=== PATIENT | female | born 1990 | race Caucasian/White ===

== ENCOUNTER 2017-04-05 00:39 | Emergency (ER) | payer MEDICAID ==
[~2017-04-05] VITALS: Ht 160 cm; Wt 90.0 kg
[2017-04-05 00:41] VITALS: BP 113/77
== END 2017-04-05 03:39 | disposition home or self-care (01) ==
LOC: ED 03:16
DX: M79.662 Pain in left lower leg (principal); M79.661 Pain in right lower leg; F15.129 Other stimulant abuse with intoxication, unspecified
CPT/HCPCS: 93005; 99283

== ENCOUNTER 2017-08-22 11:32 | Emergency (ER) | payer MEDICAID ==
[~2017-08-22] VITALS: Ht 165.1 cm; Wt 70.0 kg
[2017-08-22 11:46] VITALS: BP 112/74
[2017-08-22 12:04] LABS: BASOPHILS # (AUTO) 0.08 x10^3/uL (0-0.1); BASOPHILS % (AUTO) 1 % (0-1); EOSINOPHILS # (AUTO) 0.15 x10^3/uL (0-0.4); EOSINOPHILS % (AUTO) 2 % (1-7); LYMPHOCYTES # (AUTO) 2.07 x10^3/uL (1-3.4); LYMPHOCYTES % (AUTO) 24 % (22-44); MD NO; MEAN CORPUSCULAR HEMOGLOBIN 26.4 pg (27.0-34.8); MEAN CORPUSCULAR HGB CONC 32.6 g/dL (32.4-35.8); MEAN CORPUSCULAR VOLUME 80.8 fL (80-100); MEAN PLATELET VOLUME 8.4 fL (7.4-10.4); MONOCYTES # (AUTO) 0.78 x10^3/uL (0.2-0.8); MONOCYTES % (AUTO) 9 % (2-9); NEUTROPHILS # (AUTO) 5.43 x10^3/uL (1.8-6.8); NEUTROPHILS % (AUTO) 64 % (42-75); PLATELET COUNT 306 x10^3/uL (130-400); RED BLOOD COUNT 5.13 x10^6/uL (3.82-5.3); RED CELL DISTRIBUTION WIDTH 15.2 % (9.6-15.2)
[2017-08-22 12:13] LABS: ANION GAP 6 mmol/L (5-15); CALCIUM 8.4 mg/dL (8.5-10.1); CHLORIDE 109 mmol/L (98-107); CREATININE 0.68 mg/dL (0.55-1.02)
== END 2017-08-22 12:51 | disposition home or self-care (01) ==
LOC: ED 12:00
DX: R41.82 Altered mental status, unspecified (principal); Z00.01 Encounter for general adult medical examination with abnormal findings
CPT/HCPCS: 36415; 80048; 84703; 85025; 99284

== ENCOUNTER 2019-07-31 06:27 | Emergency (ER) | payer SELFPAY ==
[~2019-07-31] VITALS: Ht 160 cm; Wt 85.0 kg
--- NOTE | 2019-07-31 06:52 | NUR ---
C/O LOW BACK PAIN AND CHEST PAIN X1 WEEK ALSO ABD PAIN. 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 CALL LIGHT WITHIN REACH. REPORT GIVEN TO ORALIA JAMES.
[2019-07-31] MEDS ORDERED: MAALOX/HYOSCYAMINE/LIDOCAINE 45 ML BTL PO ONE (07:00)
[2019-07-31 07:15] LABS: BASOPHILS # (AUTO) 0.05 x10^3/uL (0-0.1); BASOPHILS % (AUTO) 1 % (0-1); EOSINOPHILS # (AUTO) 0.08 x10^3/uL (0-0.4); EOSINOPHILS % (AUTO) 1 % (1-7); LYMPHOCYTES % (AUTO) 18 % (22-44); MD NO; MEAN CORPUSCULAR HEMOGLOBIN 27.5 pg (27.0-34.8); MEAN CORPUSCULAR HGB CONC 33.7 g/dL (32.4-35.8); MEAN CORPUSCULAR VOLUME 81.6 fL (80-100); MEAN PLATELET VOLUME 8.3 fL (7.4-10.4); MONOCYTES # (AUTO) 0.79 x10^3/uL (0.2-0.8); MONOCYTES % (AUTO) 9 % (2-9); NEUTROPHILS # (AUTO) 6.59 x10^3/uL (1.8-6.8); NEUTROPHILS % (AUTO) 72 % (42-75); PLATELET COUNT 266 x10^3/uL (130-400); RED BLOOD COUNT 5.08 x10^6/uL (3.82-5.3); RED CELL DISTRIBUTION WIDTH 14.3 % (9.6-15.2)
[2019-07-31] MEDS ORDERED: MAALOX/HYOSCYAMINE/LIDOCAINE 45 ML BTL ONE (07:20)
--- NOTE | 2019-07-31 07:23 | NUR ---
PT LYING IN BED WITH EYES CLOSED. GIVEN GI COCKTAIL NOTED ON MAR
[2019-07-31 07:26] LABS: ALANINE AMINOTRANSFERASE 24 U/L (12-78); ALBUMIN 3.7 g/dL (3.4-5.0); ANION GAP 9 mmol/L (5-15); CALCIUM 8.8 mg/dL (8.5-10.1); CHLORIDE 111 mmol/L (98-107); CREATININE 0.73 mg/dL (0.55-1.02)
[2019-07-31 07:31] LABS: ALKALINE PHOSPHATASE 56 U/L (45-117); BILIRUBIN,TOTAL 1.4 mg/dL (0.2-1.0); TOTAL PROTEIN 7.6 g/dL (6.4-8.2); TROPONIN I < 0.015 ng/mL (0.000-0.045)
--- NOTE | 2019-07-31 08:00 | NUR ---
LYING IN BED WITH EYES CLOSED, AWAITING RE-EVAL
[2019-07-31 08:11] VITALS: BP 111/62
--- NOTE | 2019-07-31 09:12 | NUR ---
PT NOT IN ROOM. LEFT WITHOUT RECEIVING DISCHARGE FROM MD
== END 2019-07-31 09:14 | disposition home or self-care (01) ==
LOC: ED 07:32
DX: R10.13 Epigastric pain (principal); R00.0 Tachycardia, unspecified; F17.200 Nicotine dependence, unspecified, uncomplicated
CPT/HCPCS: 36415; 71045; 80053; 83735; 84484; 84703; 85025; 85379; 93005; 99285

== ENCOUNTER 2020-01-22 00:59 | Emergency (ER) | payer SELFPAY ==
[~2020-01-22] VITALS: Ht 160 cm; Wt 96.5 kg
[2020-01-22] MEDS ORDERED: PROPARACAINE OPHTH 0.5%, 15ML EACHEYE ONE (01:30)
[2020-01-22] MEDS ORDERED: FLUORESCEIN OPHTHALMIC 1 MG STRIP EACHEYE ONE (01:30)
[2020-01-22] MEDS ORDERED: PROPARACAINE OPHTH 0.5%, 15ML ONE (02:22)
[2020-01-22] MEDS ORDERED: FLUORESCEIN OPHTHALMIC 1 MG STRIP ONE (02:22)
[2020-01-22 02:39] VITALS: BP 140/89
--- NOTE | 2020-01-22 02:39 | NUR ---
PT SEEN IN TRIAGE BY MD AND PA, CARE GIVEN.
== END 2020-01-22 02:41 | disposition home or self-care (01) ==
LOC: ED 02:30
DX: S05.12XA Contusion of eyeball and orbital tissues, left eye, initial encounter (principal); Y04.0XXA Assault by unarmed brawl or fight, initial encounter; Y93.89 Activity, other specified; Y92.098 Other place in other non-institutional residence as the place of occurrence of the external cause; Y99.8 Other external cause status
CPT/HCPCS: 70486; 99284